=== PATIENT | male | born 1985 ===

== ENCOUNTER 2022-08-26 14:39 | Outpatient (CLI) | payer OTHER, SELFPAY ==
--- NOTE | 2022-08-26 15:09 | MR_ITS ---
WS: [id number] MRI LUMBAR SPINE NONCONTRAST TECHNIQUE: Sagittal T1, T2 and STIR imaging. Axial T1 and T2 imaging. CLINICAL INFORMATION: LEFT SIDE SCIATICA COMPARISON: None FINDINGS: Mild lumbar curve. No acute compression. Large disc extrusion L5-S1 with impingement on the traversin g LEFT S1 nerve root in the subarticular recess. Disc material measures 9.2 mm AP. L1-L2: Normal. L2-L3: Mild facet arthropathy. Spinal canal and foramen are patent. L3-L4: Mild facet arthropathy. Spinal canal and foramen are patent. L4-L5: Mild annular bulging. Slight narrowing of the RIGHT subarticular recess. Mild RIGHT foraminal narrowing.Tiny RIGHT annular fissure. LEFT foramen is patent. Mild facet arthropathy. L5-S1: LEFT pericentral disc extrusion impinges the LEFT S1 nerve root in the subarticular recess. Correlation LEFT S1 nerve root symptoms. Mild LEFT and no significant RIGHT foraminal narrowing. Mild facet arthropathy. A few tiny shallow disc protrusions in the cervical spine at C3-C4 C4-C5 and C5-C6. Visualized pelvic bony structures: Normal. Paravertebral soft tissues: Normal. MR/MR lumbar spine wo con* [id number] IMPRESSION: 1. Prominent LEFT pericentral disc extrusion L5-S1 impinges the traversing LEF T S1 nerve root in the subarticular recess. Correlation LEFT S1 nerve root symp toms. Recommend spine surgery consultation. 2. Mild annular bulging L4-L5 with mild RIGHT foraminal narrowing. Tiny RIGHT foraminal protrusion slightly contacts exiting RIGHT L4 nerve root with tiny an nular fissure. 3. A few tiny shallow disc protrusions mid cervical spine on skate hop imaging at C3-C4, C4-C5 and C5-C6.
== END 2022-08-26 14:40 | disposition home or self-care (01) ==
PROVIDERS: PCP Family Medicine; Visit Provider Family Medicine
DX: M54.32 Sciatica, left side (principal); M51.27 Other intervertebral disc displacement, lumbosacral region; M50.21 Other cervical disc displacement, high cervical region
CPT/HCPCS: 72148